=== PATIENT | female | born 1990 | race Caucasian/White ===

== ENCOUNTER 2022-04-25 12:26 | Emergency (ER) | payer BC ==
[~2022-04-25] VITALS: Ht 162.6 cm; Wt 74.8 kg
[2022-04-25] MEDS ORDERED: IV NS 0.9% 500 ML BAG IV ONE (14:30)
[2022-04-25 15:26] LABS: BASOPHILS % (AUTO) 0.5 % (0.0-2.0); HEMATOCRIT 37 % (33-45); HEMOGLOBIN 12.5 g/dL (11.5-14.8); LYMPHOCYTES # (AUTO) 2.4 K/uL (0.8-4.8); LYMPHOCYTES % (AUTO) 25.8 % (20.0-44.0); MEAN CORPUSCULAR HGB CONC 33 g/dl (31.0-36.0); MEAN CORPUSCULAR VOLUME 90 fL (82-100); MONOCYTES # (AUTO) 0.8 K/uL (0.1-1.30); MONOCYTES % (AUTO) 8.6 % (2.0-12.0); NEUTROPHILS # (AUTO) 5.9 K/uL (1.8-8.9); NEUTROPHILS % (AUTO) 64.1 % (43.0-81.0); PLATELET COUNT (AUTO) 390 K/uL (150-450); RED BLOOD CELL COUNT(AUTO) 4.14 MIL/uL (4.0-5.2); WHITE BLOOD COUNT (AUTO) 9.2 K/uL (4.3-11.0)
--- NOTE | 2022-04-25 15:44 | NUR ---
BLOOD SAMPLES OBTAINED. LEFT AC # 20 G SALINE LOCK ESTABLISHED.
[2022-04-25 15:55] LABS: ALANINE AMINOTRANSFERASE 40 U/L (12-78); ALBUMIN 3.4 g/dL (3.4-5.0); ALKALINE PHOSPHATASE 67 U/L (46-116); ASPARTATE AMINOTRANSFERASE 21 U/L (15-37); BILIRUBIN,TOTAL 0.6 mg/dL (0.2-1.0); CALCIUM, SERUM 8.8 mg/dL (8.5-10.1); CARBON DIOXIDE 25 mmol/L (21-32); CHLORIDE 104 mmol/L (98-107); CREATININE 0.7 mg/dL (0.6-1.3); GLUCOSE 88 mg/dL (74-106); POTASSIUM 4.6 mmol/L (3.5-5.1); SODIUM SERUM 136 mmol/L (136-145); TOTAL PROTEIN, SERUM 7.3 g/dL (6.4-8.2); UREA NITROGEN, BLOOD 15 mg/dL (7-18)
[2022-04-25 16:09] LABS: BILIRUBIN,DIRECT 0.1 mg/dL (0.0-0.2)
[2022-04-25 16:11] LABS: BILIRUBIN,URINE NEGATIVE (NEGATIVE); COLOR,URINE YELLOW (YELLOW); LEUKOCYTE ESTERASE ,URINE NEGATIVE (NEGATIVE); NITRITE, URINE NEGATIVE (NEGATIVE); PROTEIN,URINE NEGATIVE (NEGATIVE); UGLUCOSE NEGATIVE (NEGATIVE); UROBILINOGEN,URINE 0.2 EU/dL (0.2)
[2022-04-25 17:38] LABS: BACTERIA,URINE RARE /HPF (None Seen); RBC,URINE 0-2 /HPF (0-2); WBC,URINE 0-2 /HPF (0-3)
[2022-04-25] MEDS ORDERED: KETOROLAC TROMETHAMINE INJ 30 MG/ML VIAL IV ONE (19:00)
[2022-04-25] MEDS ORDERED: IV NS 0.9% 250 ML IV ONE (19:31)
[2022-04-25] MEDS ORDERED: IOHEXOL-350 100 ML VIAL IV ONE (19:31)
[2022-04-25] MEDS ORDERED: KETOROLAC TROMETHAMINE 15 MG/ML VIAL ONE (19:32)
--- NOTE | 2022-04-25 19:51 | NUR ---
PATIENT RETURNED FROM CT
[2022-04-25 20:13] LABS: LIPASE 258 U/L (73-393)
[2022-04-25] MEDS ORDERED: AZIT250T13 PO (21:17)
[2022-04-25] MEDS ORDERED: AMOX875T2 PO (21:17)
--- NOTE | 2022-04-25 21:28 | NUR ---
Patient discharged to home in stable condition. Written and verbal after care instructions given. Patient verbalizes understanding of instruction. IV removed. Catheter intact and site benign. Pressure and 4x4 applied to site. No bleeding noted.
[2022-04-25 21:29] VITALS: BP 119/69
== END 2022-04-25 21:29 | disposition home or self-care (01) ==
LOC: ER 12:37
DX: R10.11 Right upper quadrant pain (principal); M25.511 Pain in right shoulder; R06.02 Shortness of breath; Z79.899 Other long term (current) drug therapy
CPT/HCPCS: 99285; 71275; 96374; 76705; 71045; 96361; 93005; 74176; 85025; 80048; 83690; 80076; 85378; 84703; 81001; 36415; 84484; J7050; J7040; Q9967; J1885